=== PATIENT | male | born 1965 | race African-American/Black ===

== ENCOUNTER 2019-07-02 | Inpatient (IN) | payer MEDICAID ==
[~2019-07-02] VITALS: Ht 170.2 cm; Wt 126.6 kg
[2019-07-02 04:52] LABS: HEMATOCRIT 41.9 % (42.0-52.0); MEAN CORPUSCULAR HEMOGLOBIN 31.3 pg (28.0-32.0); MEAN CORPUSCULAR VOLUME 93.9 fL (80.0-94.0); PLATELET 182 x1000/uL (130-400); RED BLOOD CELL COUNT 4.47 mill/uL (4.7-6.1); RED CELL DISTRIBUTION WIDTH 15.3 % (11.6-14.6)
[2019-07-02 04:53] LABS: CHLORIDE 107 mEq/L (98-107)
[2019-07-02 04:55] LABS: INR 0.9; PARTIAL THROMBOPLASTIN TIME 26.9 sec (23.4-31.0); PROTHROMBIN TIME 10.2 sec (9.6-11.0)
[2019-07-02 05:00] LABS: ETHANOL BLOOD < 10 mg/dL
[2019-07-02] MEDS ORDERED: LORAZEPAM 2MG/ML CPJ IV ONE (05:30)
[2019-07-02 05:45] LABS: *AMPHETAMINES SCREEN URINE NEGATIVE (NEGATIVE); *BARBITURATES SCREEN URINE NEGATIVE (NEGATIVE); *BENZODIAZEPINES SCREEN URINE NEGATIVE (NEGATIVE); *COCAINE SCREEN URINE NEGATIVE (NEGATIVE); CANNABINOID URINE SCREEN NEGATIVE (NEGATIVE); METHADONE URINE SCREEN NEGATIVE (NEGATIVE); OPIATES URINE SCREEN NEGATIVE (NEGATIVE); PHENCYCLIDINE URINE SCREEN PRESUMTIVE POSITIVE (NEGATIVE)
[2019-07-02] MEDS ORDERED: HYDRALAZINE 20MG/ML VIAL IV ONE (09:45)
[2019-07-02] MEDS ORDERED: CLONIDINE 0.1MG TABLET PO PRN (14:00)
[2019-07-02] MEDS ORDERED: ONDANSETRON HCL 4MG/2ML INJ IV PRN (14:00)
[2019-07-02] MEDS ORDERED: ENOXAPARIN 40MG/0.4ML SYR SUBCUT SCH (14:00)
[2019-07-02] MEDS ORDERED: IPRATROPIUM/ALBUTEROL 0.5-3(2.5)MG/3ML NEB HHN PRN (14:00)
[2019-07-02] MEDS ORDERED: ENALAPRIL 1.25MG/ML VIAL 1ML IV NR ×2 (14:30→21:15)
[2019-07-02 14:35] LABS: PHOSPHORUS 3.8 mg/dL (2.5-4.9)
[2019-07-03 03:00] VITALS: BP 172/79
[2019-07-03] MEDS: ENALAPRIL 2.5MG/2ML VIAL 2ML IV SCH ×4 (03:54→20:32)
[2019-07-03 04:00] VITALS: BP 175/101
[2019-07-03] MEDS ORDERED: OXYC-662 PO (05:12)
[2019-07-03 08:00] VITALS: BP 156/90
[2019-07-03 08:06] LABS: BASOPHILS % 0.6 % (0.0-2.0); HEMATOCRIT. 43.6 % (42.0-52.0); HEMOGLOBIN. 14.6 g/dL (14.0-18.0); LYMPHOCYTES % 21.1 % (20.0-50.0); MEAN CORPUSCULAR HEMOGLOBIN 31.8 pg (28.0-32.0); MEAN CORPUSCULAR VOLUME 94.7 fL (80.0-94.0); MEAN PLATELET VOLUME 8.7 fl (7.4-10.4); MONOCYTES % 9.1 % (2.0-8.0); NEUTROPHILS % 67.2 % (40.0-76.0); PLATELET 181 x1000/uL (130-400); RED BLOOD CELL COUNT 4.61 mill/uL (4.7-6.1); RED CELL DISTRIBUTION WIDTH 15.4 % (11.6-14.6)
[2019-07-03] MEDS: ENOXAPARIN 30MG/0.3ML SYR SUBCUT SCH ×2 (10:02→20:32)
[2019-07-03 11:57] LABS: CHLORIDE 105 mEq/L (98-107)
[2019-07-03 12:00] VITALS: BP 169/89
[2019-07-03] MEDS ORDERED: INFLUENZA VIRUS VACCINE(AFLURIA) 0.5ML SYR IM ONE (12:00)
[2019-07-03] MEDS ORDERED: PNEUMOCOCCAL 23-VAL P-SAC VAC 0.5 ML IM ONE (12:00)
[2019-07-03 12:09] LABS: LDL CHOLESTEROL 95 mg/dL (5-100)
[2019-07-03 12:10] LABS: HDL CHOLESTEROL 36 mg/dL (40-59)
[2019-07-03 14:17] LABS: FOLIC ACID (FOLATE) SERUM 9.9 ng/mL (>5.38)
[2019-07-03 16:00] VITALS: BP 127/76
[2019-07-03] MEDS: HYDROCODONE/ACETAMINOPHEN 5/325MG TABLET PO PRN (19:21)
[2019-07-03 20:00] VITALS: BP 168/86
[2019-07-04 00:05] VITALS: BP 141/85
[2019-07-04 04:00] VITALS: BP 131/73
[2019-07-04] MEDS: ENALAPRIL 2.5MG/2ML VIAL 2ML IV SCH ×2 (04:38→08:59)
[2019-07-04] MEDS: HYDROCODONE/ACETAMINOPHEN 5/325MG TABLET PO PRN (04:58)
[2019-07-04 07:07] LABS: BASOPHILS % 0.6 % (0.0-2.0); EOSINOPHILS % 2.7 % (0.0-5.0); HEMATOCRIT. 41.6 % (42.0-52.0); HEMOGLOBIN. 13.9 g/dL (14.0-18.0); LYMPHOCYTES % 31.3 % (20.0-50.0); MEAN CORPUSCULAR HEMOGLOBIN 31.4 pg (28.0-32.0); MEAN CORPUSCULAR VOLUME 94.3 fL (80.0-94.0); MONOCYTES % 9.4 % (2.0-8.0); PLATELET 190 x1000/uL (130-400); RED BLOOD CELL COUNT 4.41 mill/uL (4.7-6.1); RED CELL DISTRIBUTION WIDTH 15.3 % (11.6-14.6)
[2019-07-04 07:20] LABS: CHLORIDE 103 mEq/L (98-107)
[2019-07-04 08:00] VITALS: BP 155/78
[2019-07-04] MEDS: ENOXAPARIN 30MG/0.3ML SYR SUBCUT SCH (09:00)
[2019-07-04 12:00] VITALS: BP 163/75
[2019-07-04 14:22] VITALS: BP 136/68
== END 2019-07-04 14:40 | disposition home or self-care (01) | DRG 812 ==
LOC: ER → 7WST 13:28 → EDBEDREQ 13:32 → ENRESERV 21:39 → 7WST 07-03 02:52
PROVIDERS: ADMIT Internal Medicine; ATTEND Internal Medicine
DX: T40.991A Poisoning by other psychodysleptics [hallucinogens], accidental (unintentional), initial encounter (principal); G92 Toxic encephalopathy; D32.9 Benign neoplasm of meninges, unspecified; I10 Essential (primary) hypertension; F16.90 Hallucinogen use, unspecified, uncomplicated; G89.29 Other chronic pain; M54.9 Dorsalgia, unspecified; M79.606 Pain in leg, unspecified; W18.39XA Other fall on same level, initial encounter; Y93.89 Activity, other specified; Y92.89 Other specified places as the place of occurrence of the external cause; Y99.8 Other external cause status
CPT/HCPCS: 36415; 70551; 72170; 80048; 80053; 80061; 80305; 80320; 82607; 82746; 82962; 83735; 84100; 85025; 85027; 90686; 90732; 93970; 96374; 99291; J0360; J1650; J2060; J3490; G0480

== ENCOUNTER 2019-11-07 11:45 | Emergency (ER) | payer MEDICAID ==
[~2019-11-07] VITALS: Ht 182.9 cm; Wt 143.0 kg
[~2019-11-07 11:45] MED LIST: OXYC-662 PO
[2019-11-07 12:34] LABS: BASOPHILS % 0.6 % (0.0-2.0); EOSINOPHILS % 1.7 % (0.0-5.0); HEMATOCRIT. 41.6 % (42.0-52.0); HEMOGLOBIN. 14.1 g/dL (14.0-18.0); LYMPHOCYTES % 27.9 % (20.0-50.0); MEAN CORPUSCULAR HEMOGLOBIN 31.1 pg (28.0-32.0); MEAN CORPUSCULAR VOLUME 92.1 fL (80.0-94.0); MEAN PLATELET VOLUME 8.5 fl (7.4-10.4); MONOCYTES % 10.2 % (2.0-8.0); NEUTROPHILS % 59.6 % (40.0-76.0); PLATELET 155 x1000/uL (130-400); RED BLOOD CELL COUNT 4.52 mill/uL (4.7-6.1); RED CELL DISTRIBUTION WIDTH 16.1 % (11.6-14.6)
[2019-11-07 12:40] LABS: CHLORIDE 109 mEq/L (98-107)
[2019-11-07 12:48] LABS: ETHANOL BLOOD < 10 mg/dL
[2019-11-07 13:09] VITALS: BP 160/80
== END 2019-11-07 13:29 | disposition home or self-care (01) ==
LOC: ER 12:00
DX: F16.129 Hallucinogen abuse with intoxication, unspecified (principal); I10 Essential (primary) hypertension
CPT/HCPCS: 36415; 80053; 80320; 82962; 85025; 99283; G0480

== ENCOUNTER 2019-11-07 15:11 | Emergency (ER) | payer MEDICAID ==
[~2019-11-07] VITALS: Ht 172.7 cm; Wt 160.0 kg
[2019-11-07 15:16] VITALS: BP 162/76
== END 2019-11-07 15:46 | disposition left against medical advice (07) ==
LOC: ER 15:11
DX: F16.10 Hallucinogen abuse, uncomplicated (principal); I10 Essential (primary) hypertension
CPT/HCPCS: 99283